=== PATIENT | female | born 1990 | race Caucasian/White ===

== ENCOUNTER 2020-06-02 11:53 | Emergency (ER) | payer MEDICAID, OTHER ==
[~2020-06-02] VITALS: Ht 157.5 cm; Wt 44.5 kg
[2020-06-02 12:46] VITALS: BP_SYST 126
[2020-06-02] MEDS ORDERED: ONDANSETRON 4 MG ODT TAB PO ONE (13:15)
[2020-06-02] MEDS ORDERED: KETOROLAC TROMETHAMINE 60 MG/2 ML VIAL IM ONE (13:15)
[2020-06-02 15:06] VITALS: BP_SYST 118
== END 2020-06-02 15:06 | disposition home or self-care (01) ==
LOC: SED 11:53
DX: N76.0 Acute vaginitis (principal); R10.2 Pelvic and perineal pain
CPT/HCPCS: 81002; 81025; 87070; 87205; 87210; 96372; 99283; J1885; Q0162